=== PATIENT | female | born 1990 | race Caucasian/White ===

== ENCOUNTER → 2019-01-27 | Outpatient (CLI) | payer OTHER ==
[~2019-01-27] MED LIST: IOHEXOL 240 MG/ML 50ML VIAL. PO ONE; IOHEXOL 300 MG/ML 100ML VIAL. IV ONE
--- NOTE | 2019-01-27 13:56 | KCIC ---
CT of the abdomen and pelvis with contrast 01/27/2019 1:50 PM Indication: Epigastric pain. Nausea, vomiting. Comparison study: None Technique: Multidetector CT imaging of the abdomen and pelvis was performed following the administration of IV contrast. Findings: The partially visualized lung bases demonstrate no acute abnormality. The liver, gallbladder, spleen, bilateral adrenal glands, bilateral kidneys, and pancreas, are grossly unremarkable. There is no bowel obstruction. No evidence of acute inflammatory change involving visualized bowel is identified. Appendix is visualized and unremarkable in appearance. Bladder is grossly unremarkable. There is free fluid seen in the pelvis, likely physiologic in a premenopausal patient. No acute osseous changes are identified. Impression No evidence of acute intra-abdominal abnormality is identified. CT DOSING PQRS STATEMENT: One or more of the following individualized dose reduction techniques were utilized for this examination: 1. Automated exposure control 2. Adjustment of the mA and/or kV according to patient size 3. Use of iterative reconstruction technique Electronically signed by: Manuel Michaels MD (01/27/2019 1:52 PM) [id number]
== END | disposition home or self-care (01) ==
LOC: KCIC CT 12:15
PROVIDERS: ATTEND Internal Medicine Gastroenterology
DX: R10.13 Epigastric pain (principal); R11.2 Nausea with vomiting, unspecified; F17.200 Nicotine dependence, unspecified, uncomplicated
CPT/HCPCS: 74177; Q9966; Q9967

== ENCOUNTER → 2019-02-06 | Outpatient (CLI) | payer OTHER ==
--- NOTE | 2019-02-06 09:52 | KCIC ---
SMALL BOWEL SERIES 02/06/2019. Reason for study: Nausea, vomiting and abdominal pain. Comparison studies: None.. Technique: Preliminary geologist petroleum film of the abdomen was obtained. Then following ingestion of oral barium, serial images of the abdomen were obtained to assess progress of contrast throughout the small bowel. Once the contrast reached the colon, fluoroscopic evaluation of the small bowel, particularly the terminal ileum, was performed. Fluoroscopy time: 24 seconds Number of images: 2 Findings: Transit time through the small bowel is normal. No evidence for bowel obstruction or dilatation. Jejunal and ileal fold patterns are normal with no evidence for inflammatory bowel disease. The terminal ileum was unremarkable. IMPRESSION: Normal small bowel series. Electronically signed by: Shelley Ramesh MD (02/06/2019 9:49 AM) [id number]
== END | disposition home or self-care (01) ==
LOC: KCIC 08:06
PROVIDERS: ATTEND Internal Medicine Gastroenterology
DX: R11.2 Nausea with vomiting, unspecified (principal); R10.9 Unspecified abdominal pain
CPT/HCPCS: 74250

== ENCOUNTER → 2019-02-07 | Outpatient (CLI) | payer OTHER ==
[~2019-02-07] VITALS: Ht 160 cm; Wt 70.8 kg
[~2019-02-07] MED LIST changes: -IOHEXOL 240 MG/ML 50ML VIAL. PO ONE; -IOHEXOL 300 MG/ML 100ML VIAL. IV ONE; +SINCALIDE 1.42 MCG in IV NORMAL SALINE 50ML 30 ML IV ONE
--- NOTE | 2019-02-07 08:25 | RAD ---
EXAM: RIGHT UPPER QUADRANT ULTRASOUND. HISTORY: Abdominal pain. Nausea/vomiting. COMPARISON: None. FINDINGS: Sonographic evaluation of the right upper quadrant was performed. The liver appears normal in parenchymal echotexture. There are no focal lesions. The gallbladder is unremarkable without evidence of stones, wall thickening or pericholecystic fluid. There is no sonographic Salas sign. The common duct measures 4 mm. The visualized portions of the head, body and tail of the pancreas reveal no abnormality. The right kidney measures 10.9 cm. Cortical thickness and echogenicity are preserved. There is no hydronephrosis. The visualized portions of the abdominal aorta and inferior vena cava are grossly patent and normal in caliber. IMPRESSION: 1. No cause for acute pain is identified. Electronically signed by: Alcira Nathan MD (02/07/2019 8:22 AM) [facility]
--- NOTE | 2019-02-07 10:44 | RAD ---
EXAM: Nuclear hepatobiliary scan. HISTORY: Pain. TECHNIQUE: Following intravenous administration of 5.5 mCi Tc 99m Choletec, anterior images of the abdomen were obtained at five minute intervals through one hour. Subsequently, 1.4 mcg Kinevac was administered and additional images to assess gallbladder ejection fraction were obtained. FINDINGS: There is prompt radiotracer uptake by the liver. No focal defect is seen. There is normal excretion into the biliary tree. The gallbladder is visualized within 5 minutes and there is free flow into the duodenum. The gallbladder ejection fraction is 75%. IMPRESSION: Normal radionuclide biliary scan. Electronically signed by: Diane Hare MD (02/07/2019 10:41 AM) [id number]
== END | disposition home or self-care (01) ==
LOC: US 07:14
PROVIDERS: ATTEND Internal Medicine Gastroenterology
DX: R10.9 Unspecified abdominal pain (principal); R11.2 Nausea with vomiting, unspecified
CPT/HCPCS: 76705; 78227; A9537; J2805